=== PATIENT | female | born 1945 | race Caucasian/White ===

== ENCOUNTER 2016-04-30 16:32 | Observation (INO) | payer MEDICARE, OTHER ==
[~2016-04-30] VITALS: Ht 162.6 cm; Wt 47.2 kg
[2016-04-30] MEDS ORDERED: DEXTROSE 50% 50 ML ONE (16:44)
[2016-04-30] MEDS ORDERED: NALOXONE 2 MG/2 ML SYRINGE ONE (16:47)
[2016-04-30] MEDS ORDERED: ONDANSETRON 4 MG VIAL IV PUSH PRN (19:20)
[2016-04-30] MEDS ORDERED: ACETAMINOPHEN 325 MG TAB PO PRN (19:20)
[2016-04-30] MEDS: D5 NS 1000 ML IV SCH (21:59)
[2016-04-30 22:45] VITALS: BP_SYST 100; RESP 16; TEMP 94.9
[2016-04-30 22:46] VITALS: Ht 162.6 cm; Wt 47.2 kg
[2016-04-30 23:00] VITALS: RESP 18
[2016-05-01] VITALS (7 sets, daily range): BP systolic 102–132; RESP 18–20; TEMP 97.5–98.1
[2016-05-01] MEDS: D5 NS 1000 ML IV SCH (09:30)
[2016-05-02 03:40] VITALS: BP_SYST 123; RESP 18; TEMP 97.5
[2016-05-02] MEDS: D5 NS 1000 ML IV SCH (04:42)
[2016-05-02 08:27] VITALS: BP_SYST 147; RESP 20; TEMP 97.6
[2016-05-02 09:54] VITALS: BP_SYST 136; RESP 20; TEMP 97.3
[2016-05-02 10:08] VITALS: BP_SYST 136; TEMP 97.3
[2016-05-02 10:14] VITALS: BP_SYST 136; RESP 20; TEMP 97.3
== END 2016-05-02 10:11 | disposition home or self-care (01) ==
LOC: ENRESERV → ENRESERVDT → ENRESERVTM → ER 16:32 → EMR 18:50 → ENPENDDIS 18:50 → 4NT 21:19
PROVIDERS: ADMIT Internal Medicine Nephrology; ATTEND Internal Medicine Nephrology
DX: G92 Toxic encephalopathy (principal); T42.3X5A Adverse effect of barbiturates, initial encounter; E86.0 Dehydration; T42.3X1A Poisoning by barbiturates, accidental (unintentional), initial encounter; E78.5 Hyperlipidemia, unspecified; G40.909 Epilepsy, unspecified, not intractable, without status epilepticus; F32.9 Major depressive disorder, single episode, unspecified; Z79.899 Other long term (current) drug therapy
CPT/HCPCS: 36415; 70450; 71010; 80053; 80307; 81001; 82140; 82550; 82553; 82947; 84484; 85007; 85027; 85610; 87088; 93005; 96374; 96375; 99285; G0378; G0480; 80320; 80329